=== PATIENT | female | born 1985 | race Caucasian/White ===

== ENCOUNTER 2017-06-01 02:47 | Emergency (ER) | payer SELFPAY ==
[2017-06-01 02:57] VITALS: BP 121/71
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
[2017-06-01] MEDS ORDERED: Lidocaine 1% 30 ML SDV INJECT ONE (03:25)
[2017-06-01] MEDS ORDERED: Diphtheria,Pertussis(Acell),Tetanus Vaccine 0.5 ML SDV IM ONE (03:26)
[2017-06-01 04:01] LABS: CHLORIDE,CL 99 mmol/L (101-111); SODIUM,NA 138 mmol/L (135-145)
[2017-06-01] MEDS ORDERED: cefTRIAXone 1 GM, Lidocaine 1% 2.1 ML IM ONE ×2 (04:21)
[2017-06-01] MEDS ORDERED: Acetaminophen 325 MG Tab PO ONE (05:17)
[2017-06-01] MEDS ORDERED: Sulfamethoxazole/Trimethoprim 800-160 MG Tab ONE (06:09)
[2017-06-01] MEDS ORDERED: Sulfamethoxazole/Trimethoprim 800-160 MG Tab PO ONE (06:09)
== END 2017-06-01 06:35 | disposition home or self-care (01) ==
LOC: DL.ED 02:47
PROC: 0HQ1XZZ Repair Face Skin, External Approach (ICD-10-PCS; principal; 2017-06-01)
PROC: 3E0234Z Introduction of Serum, Toxoid and Vaccine into Muscle, Percutaneous Approach (ICD-10-PCS; 2017-06-01)
DX: S01.81XA Laceration without foreign body of other part of head, initial encounter (principal); Y04.0XXA Assault by unarmed brawl or fight, initial encounter; Y92.89 Other specified places as the place of occurrence of the external cause; F17.200 Nicotine dependence, unspecified, uncomplicated; S60.221A Contusion of right hand, initial encounter; Z23 Encounter for immunization
CPT/HCPCS: 12011; 36415; 70450; 70486; 73130; 80053; 85025; 90471; 90715; 99285; A9270; G0480; J0696; 12015; 99282